=== PATIENT | male | born 1955 | race Two or more races ===

== ENCOUNTER 2021-03-22 20:44 | Emergency (ER) | payer OTHER ==
[~2021-03-22] VITALS: Ht 170.2 cm; Wt 79.4 kg
== END 2021-03-22 22:00 | disposition home or self-care (01) ==
LOC: ER 20:44
DX: S61.022A Laceration with foreign body of left thumb without damage to nail, initial encounter (principal); W26.0XXA Contact with knife, initial encounter; Y93.89 Activity, other specified; Y92.89 Other specified places as the place of occurrence of the external cause; Y99.8 Other external cause status

== ENCOUNTER 2023-08-26 15:54 | Emergency (ER) | payer OTHER ==
[~2023-08-26] VITALS: Ht 170.2 cm; Wt 72.6 kg
== END 2023-08-26 17:39 | disposition home or self-care (01) ==
LOC: ER 15:55
DX: R07.89 Other chest pain (principal); V23.49XA Other motorcycle driver injured in collision with car, pick-up truck or van in traffic accident, initial encounter; Y93.9 Activity, unspecified; Y92.413 State road as the place of occurrence of the external cause; Y99.9 Unspecified external cause status